=== PATIENT | male | born 1985 | race Two or more races ===

== ENCOUNTER 2017-08-27 17:52 | Inpatient (IN) | payer OTHER ==
[2017-08-27] MEDS ORDERED: HYDROmorphONE/DILAUDID 1 MG/ML INJ IVP ONE ×3 (18:07→20:41)
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
[2017-08-27] MEDS ORDERED: KETAMINE 100 MG/10 ML SYR ONE (18:53)
[2017-08-27] MEDS ORDERED: PROPOFOL 200 MG/20 ML VIAL ONE (18:53)
[2017-08-27] MEDS ORDERED: HYDROmorphONE/DILAUDID 1 MG/ML INJ ONE (18:57)
[2017-08-27] MEDS ORDERED: PROPOFOL 200 MG/20 ML VIAL IVP ONE ×3 (18:57→20:21)
[2017-08-27] MEDS ORDERED: KETAMINE 100 MG/10 ML SYR IVP ONE ×2 (18:58→20:20)
[2017-08-27] MEDS ORDERED: HYDROCOD/APAP 5/325 PREPACK#6 BTL TAKEHOME ONE (20:00)
[2017-08-27] MEDS ORDERED: ATENOLOL 50 MG TAB PO ONE (20:19)
[2017-08-27] MEDS ORDERED: METHIMAZOLE 5 MG TAB PO ONE (20:19)
[2017-08-27] MEDS ORDERED: KETAMINE 500 MG/10 ML VIAL IVP ONE (20:21)
[2017-08-27] MEDS ORDERED: NS 1,000 ML IV ONE (20:29)
[2017-08-27 20:42] LABS: % IMMATURE GRANULYOCYTES 0.3 % (0.0-1.1); ABSOLUTE IMMATURE GRANULOCYTES 0.03 10^3/uL (0.00-0.10); ADD DIFF? NO; ADD MORPH? NO; ADD SCAN? NO; ATYPICAL LYMPHOCYTE FLAG 0 (0-99); FRAGMENT RBC FLAG 0 (0-99); HEMATOCRIT 42.1 % (40.0-51.0); HEMOGLOBIN 14.4 g/dL (13.7-17.5); LEFT SHIFT FLG 0 (0-99); LIPEMIA HEMOLYSIS FLAG 90 (0-99); MEAN CELL HEMOGLOBIN 27.6 pg (27.9-34.1); MEAN CELL HEMOGLOBIN CONCENTR. 34.2 g/dL (32.4-36.7); MEAN CELL VOLUME 80.7 fL (81.5-99.8); MEAN PLATELET VOLUME 10.2 fL (8.7-11.7); PLATELET CLUMPS FLAG 20 (0-99); PLATELET COUNT 170 10^3/uL (150-400); RED BLOOD CELL COUNT 5.22 10^6/uL (4.40-6.38); RED CELL DISTRIBUTION WIDTH 13.7 % (11.5-15.2)
--- NOTE | 2017-08-27 20:52 | CPEKG ---
Heart Rate: 110 RR Interval: 545 P-R Interval: 140 QRSD Interval: 100 QT Interval: 324 QTC Interval: 439 P [place]: -5 QRS [place]: 53 T Wave [place]: 19 EKG Severity - ABNORMAL ECG - EKG Impression: SINUS TACHYCARDIA EKG Impression: PROBABLE LEFT VENTRICULAR HYPERTROPHY Electronically Signed By: Alexander Ahuja 27-Aug-2017 21:07:21
[2017-08-27 20:54] LABS: APTT 26.3 SEC (23.0-38.0); INR 1.26 (0.83-1.16)
[2017-08-27] MEDS ORDERED: ESMOLOL/NACL 250 ML IV SCH (21:00)
[2017-08-27 21:03] LABS: ALANINE AMINOTRANSFERASE 32 IU/L (21-72); ALBUMIN 3.9 g/dL (3.5-5.0); ALKALINE PHOSPHATASE 234 IU/L (38-126); ANION GAP 15 mEq/L (8-16); ASPARTATE AMINOTRANSFERASE 22 IU/L (17-59); BILIRUBIN,TOTAL 0.4 mg/dL (0.1-1.4); BILIRUBIN-CONJUGATED 0.2 mg/dL (0.0-0.5); BILIRUBIN-UNCONJUGATED 0.2 mg/dL (0.0-1.1); CALCIUM 9.1 mg/dL (8.5-10.4); CARBON DIOXIDE 18 mEq/l (22-31); CHLORIDE 108 mEq/L (97-110); CREATININE 0.5 mg/dL (0.7-1.3); GLOMERULAR FILTRATION RATE > 60; GLUCOSE 108 mg/dL (70-100); POTASSIUM 3.9 mEq/L (3.5-5.2); SODIUM 141 mEq/L (134-144)
[2017-08-27] MEDS ORDERED: ESMOLOL/NACL 250 ML IV ONE (21:30)
[2017-08-27] MEDS ORDERED: ONDANSETRON 4 MG/2 ML VIAL IVP PRN (21:35)
[2017-08-27] MEDS ORDERED: PROMETHAZINE HCL 25 MG/ML INJ IVP PRN (21:35)
[2017-08-27] MEDS ORDERED: ONDANSETRON DISINTEGRATING 4 MG TAB PO PRN (21:35)
[2017-08-27] MEDS: HYDROmorphONE/DILAUDID 1 MG/ML INJ IVP PRN (21:55)
[2017-08-27] MEDS: NS 1,000 ML IV SCH (21:58)
[2017-08-27] MEDS ORDERED: PROPRANOLOL HCL 20 MG TAB PO SCH (22:00)
[2017-08-27] MEDS: oxyCODONE IR 5 MG TAB PO PRN (22:08)
[2017-08-27] MEDS: ACETAMINOPHEN 500 MG TAB PO SCH (22:10)
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
[2017-08-27] MEDS: PROPRANOLOL HCL 20 MG TAB PO SCH (23:25)
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
[2017-08-28] MEDS: PROPRANOLOL HCL 20 MG TAB PO SCH ×4 (02:09→22:23)
[2017-08-28] MEDS: oxyCODONE IR 5 MG TAB PO PRN ×4 (02:15→17:35)
[2017-08-28] MEDS: HYDROmorphONE/DILAUDID 1 MG/ML INJ IVP PRN ×2 (04:43→12:16)
[2017-08-28] MEDS: NS 1,000 ML IV SCH (06:41)
[2017-08-28] MEDS: ACETAMINOPHEN 500 MG TAB PO SCH ×3 (06:46→22:25)
[2017-08-28 07:12] LABS: % IMMATURE GRANULYOCYTES 0.2 % (0.0-1.1); ABSOLUTE IMMATURE GRANULOCYTES 0.02 10^3/uL (0.00-0.10); ADD DIFF? NO; ADD MORPH? NO; ADD SCAN? NO; ATYPICAL LYMPHOCYTE FLAG 0 (0-99); FRAGMENT RBC FLAG 0 (0-99); HEMATOCRIT 37.6 % (40.0-51.0); HEMOGLOBIN 12.7 g/dL (13.7-17.5); LEFT SHIFT FLG 0 (0-99); LIPEMIA HEMOLYSIS FLAG 90 (0-99); MEAN CELL HEMOGLOBIN 27.6 pg (27.9-34.1); MEAN CELL HEMOGLOBIN CONCENTR. 33.8 g/dL (32.4-36.7); MEAN CELL VOLUME 81.7 fL (81.5-99.8); MEAN PLATELET VOLUME 10.4 fL (8.7-11.7); PLATELET CLUMPS FLAG 0 (0-99); PLATELET COUNT 166 10^3/uL (150-400); RED CELL DISTRIBUTION WIDTH 14.1 % (11.5-15.2)
[2017-08-28 07:18] LABS: ANION GAP 9 mEq/L (8-16); CARBON DIOXIDE 23 mEq/l (22-31); CHLORIDE 106 mEq/L (97-110); CREATININE 0.5 mg/dL (0.7-1.3); GLOMERULAR FILTRATION RATE > 60; GLUCOSE 97 mg/dL (70-100); POTASSIUM 4.3 mEq/L (3.5-5.2); SODIUM 138 mEq/L (134-144)
[2017-08-28] MEDS ORDERED: METHIMAZOLE 5 MG TAB PO SCH ×2 (08:00→09:03)
--- NOTE | 2017-08-28 09:07 | TRAUMAPN ---
Assessment/Plan: 08/28/2017 PAD#1 Assessment: Tertiary exam complete and without new findings. It is unclear who was consulted from orthopedics yesterday. I will research that question. Agree with endocrine that Hyperthyroidism should be controlled prior to surgery as there is not a surgical emergency at this point Plan: Obtain ortho consult if it has not been done. Subjective: I have no new pains or complaints Objective: Vital Signs Temp Pulse Resp BP Pulse Ox 36.9 C 88 19 119/69 98 08/28/17 07:29 08/28/17 08:26 08/28/17 07:29 08/28/17 08:26 08/28/17 07:29 Laboratory Results 08/28/17 06:40 08/28/17 06:40 08/27/17 08/28/17 08/29/17 05:59 05:59 05:59 Intake Total 2750 885 Output Total 200 Balance 2550 885 PT 16.0 SEC (12.0-15.0) H 08/27/17 20:35 INR 1.26 (0.83-1.16) H 08/27/17 20:35 Physical Exam - Physical Exam General Appearance: WD/WN, alert, no apparent distress EENT: normal ENT inspection Neck: non-tender, full range of motion, supple, normal inspection Respiratory: chest non-tender, lungs clear, normal breath sounds Cardiac/Chest: regular rate, rhythm Abdomen: normal bowel sounds, non-tender, soft, other (pelvis stable to AP and lateral compression) Male Genitalia: deferred Rectal: deferred Back: Normal inspection Skin: normal color, warm/dry, diaphoresis (slight) Extremities: other (left arm in splint, right leg in walker boot) Neuro/Psych: no motor/sensory deficits, alert, normal mood/affect, oriented x 3 Time Spent w/Patient (minutes): 25
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
--- NOTE | 2017-08-28 12:14 | SOAPPROG ---
SOAP Progress Note Assessment/Plan: Assessment: Left both bone fx R 4-5th MT fractures Plan: Plan OR tomorrow for orif L forearm CT of right foot see dicated for full consult 08/28/17 12:14 Objective: Vital Signs Temp Pulse Resp BP Pulse Ox 36.9 C 88 19 119/69 98 08/28/17 07:29 08/28/17 08:26 08/28/17 07:29 08/28/17 08:26 08/28/17 07:29 Laboratory Results 08/28/17 06:40 08/28/17 06:40 08/27/17 08/28/17 08/29/17 05:59 05:59 05:59 Intake Total 2750 885 Output Total 200 Balance 2550 885 PT 16.0 SEC (12.0-15.0) H 08/27/17 20:35 INR 1.26 (0.83-1.16) H 08/27/17 20:35 ICD10 Worksheet Patient Problems: Problems Problem Status Onset Foot fracture, right Acute Fracture of forearm, left, closed Acute
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
[2017-08-28] MEDS: METHIMAZOLE 5 MG TAB PO SCH (17:35)
[2017-08-28] MEDS: HYDROCORTISONE 100 MG/2 ML VIAL IVP SCH (17:35)
[2017-08-28] MEDS: CHOLESTYRAMINE/SUCROSE 4 GM PKT PO SCH (18:38)
[2017-08-28] MEDS: POTASSIUM IODIDE 30 ML BTL PO SCH (23:00)
[2017-08-29] MEDS: METHIMAZOLE 5 MG TAB PO SCH ×5 (00:13→23:38)
[2017-08-29] MEDS: CHOLESTYRAMINE/SUCROSE 4 GM PKT PO SCH ×4 (01:28→18:35)
[2017-08-29] MEDS: HYDROCORTISONE 100 MG/2 ML VIAL IVP SCH ×3 (01:28→18:33)
[2017-08-29] MEDS: POTASSIUM IODIDE 30 ML BTL PO SCH ×4 (04:45→19:52)
[2017-08-29] MEDS: ACETAMINOPHEN 500 MG TAB PO SCH ×3 (05:17→22:04)
[2017-08-29 05:56] LABS: ANION GAP 14 mEq/L (8-16); CALCIUM 9.5 mg/dL (8.5-10.4); CARBON DIOXIDE 20 mEq/l (22-31); CHLORIDE 108 mEq/L (97-110); CREATININE 0.5 mg/dL (0.7-1.3); GLOMERULAR FILTRATION RATE > 60; GLUCOSE 146 mg/dL (70-100); POTASSIUM 4.1 mEq/L (3.5-5.2); SODIUM 142 mEq/L (134-144)
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
--- NOTE | 2017-08-29 08:36 | SOAPPROG ---
SOAP Progress Note Assessment/Plan: Assessment: 1. Graves disease with mild ophthalmopathy, bilateral, uncontrolled. -Reviewed thyroid US report which is consistent with Graves disease. TSI antibody still pending. T3 elevated at 10.9. -Started on thyroid storm protocol to lower levels as much as possible prior to surgery. Continue methimazole 20 mg PO q 6 hrs, hydrocortisone 100 mg IV q 8 to decrease peripheral conversion, propranolol to decrease peripheral conversion and control tachycardia, cholestyramine 4g PO q6 to decrease enterohepatic circulation, SSKI drops. Will continue these meds at these doses until 1-2 days post surgery and then will stop iodine drops and taper down other meds. Discharge dose of methimazole will likely be 30 mg PO qday. Repeat T4 and T3 level tomorrow. TSH level will remain suppressed for a few months so no need to check that. Plan: 08/29/17 08:32 Subjective: Pain from fracture is better controlled this morning. He had no questions about medications this morning. Objective: Vital Signs Temp Pulse Resp BP Pulse Ox 36.6 C 83 15 115/70 97 08/29/17 08:00 08/29/17 08:00 08/29/17 08:00 08/29/17 08:00 08/29/17 08:00 Laboratory Results 08/29/17 05:32 08/28/17 08/29/17 08/30/17 05:59 05:59 05:59 Intake Total 900 Output Total 4 Balance 896 PT 16.0 SEC (12.0-15.0) H 08/27/17 20:35 INR 1.26 (0.83-1.16) H 08/27/17 20:35 ICD10 Worksheet Patient Problems: Problems Problem Status Onset Foot fracture, right Acute Fracture of forearm, left, closed Acute
[2017-08-29] MEDS: PROPRANOLOL HCL 20 MG TAB PO SCH ×3 (09:16→23:37)
--- NOTE | 2017-08-29 09:37 | SOAPPROG ---
KAILASH Progress Note Assessment/Plan: Assessment: Left both bone fx R 4-5th MT fractures Plan: Plan OR tomorrow for orif L forearm at around 1:00pm CT of right foot medical maximization of thyroid 08/28/17 12:14 08/29/17 09:35 Subjective: pain left forearm Objective: Vital Signs Temp Pulse Resp BP Pulse Ox 36.6 C 83 15 115/70 97 08/29/17 08:00 08/29/17 08:00 08/29/17 08:00 08/29/17 08:00 08/29/17 08:00 Laboratory Results 08/29/17 05:32 08/28/17 08/29/17 08/30/17 05:59 05:59 05:59 Intake Total 900 Output Total 4 Balance 896 PT 16.0 SEC (12.0-15.0) H 08/27/17 20:35 INR 1.26 (0.83-1.16) H 08/27/17 20:35 splint intact ICD10 Worksheet Patient Problems: Problems Problem Status Onset Foot fracture, right Acute Fracture of forearm, left, closed Acute
[2017-08-29] MEDS: oxyCODONE IR 5 MG TAB PO PRN ×3 (10:25→18:32)
[2017-08-29] MEDS: HYDROmorphONE/DILAUDID 1 MG/ML INJ IVP PRN ×2 (12:02→12:49)
[2017-08-29] MEDS ORDERED: POTASSIUM IODIDE 30 ML BTL PO SCH (13:30)
[2017-08-29] MEDS: KETOROLAC 30 MG/1 ML SDV IVP PRN (13:54)
[2017-08-29] MEDS ORDERED: HYDROmorphone HCL/NS/PF 0.4 MG/2 ML SYR IVP PRN (15:31)
[2017-08-30] MEDS: HYDROCORTISONE 100 MG/2 ML VIAL IVP SCH ×3 (01:07→18:07)
[2017-08-30] MEDS: POTASSIUM IODIDE 30 ML BTL PO SCH ×4 (01:08→19:27)
[2017-08-30] MEDS: CHOLESTYRAMINE/SUCROSE 4 GM PKT PO SCH ×6 (01:35→23:50)
[2017-08-30] MEDS: oxyCODONE IR 5 MG TAB PO PRN ×3 (01:37→23:51)
[2017-08-30] MEDS: KETOROLAC 30 MG/1 ML SDV IVP PRN ×2 (04:47→23:54)
[2017-08-30 05:18] LABS: ANION GAP 14 mEq/L (8-16); CALCIUM 9.3 mg/dL (8.5-10.4); CARBON DIOXIDE 21 mEq/l (22-31); CHLORIDE 108 mEq/L (97-110); CREATININE 0.5 mg/dL (0.7-1.3); GLOMERULAR FILTRATION RATE > 60; GLUCOSE 123 mg/dL (70-100); POTASSIUM 4.2 mEq/L (3.5-5.2); SODIUM 143 mEq/L (134-144)
[2017-08-30] MEDS: ACETAMINOPHEN 500 MG TAB PO SCH ×3 (06:08→21:47)
[2017-08-30] MEDS: METHIMAZOLE 5 MG TAB PO SCH ×4 (06:09→23:50)
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
[2017-08-30] MEDS: PROPRANOLOL HCL 20 MG TAB PO SCH ×3 (10:13→21:47)
[2017-08-30] MEDS ORDERED: LR 1,000 ML IV ONE (12:18)
--- NOTE | 2017-08-30 12:25 | SOAPPROG ---
SOAP Progress Note Assessment/Plan: Assessment: 1. Graves disease with mild ophthalmopathy, bilateral, uncontrolled. -Reviewed thyroid US report which is consistent with Graves disease. TSI antibody still pending. T3 elevated at 10.9. -Started on thyroid storm protocol to lower levels as much as possible prior to surgery. Continue methimazole 20 mg PO q 6 hrs, hydrocortisone 100 mg IV q 8 to decrease peripheral conversion, propranolol to decrease peripheral conversion and control tachycardia, cholestyramine 4g PO q6 to decrease enterohepatic circulation, SSKI drops. Will continue these meds at these doses until 1-2 days post surgery and then will stop iodine drops and taper down other meds. Discharge dose of methimazole will likely be 30 mg PO qday. Repeat T4 and T3 level tomorrow. TSH level will remain suppressed for a few months so no need to check that. Plan: 08/29/17 08:32 Subjective: Patient had been taken down to pre-op area when I stopped by his room. Reviewed T4 and T3 levels from this morning which continue to improve. Objective: Vital Signs Temp Pulse Resp BP Pulse Ox 36.8 C 88 16 91/70 L 97 08/30/17 12:14 08/30/17 12:14 08/30/17 12:14 08/30/17 12:14 08/30/17 12:14 Laboratory Results 08/30/17 04:21 08/29/17 08/30/17 08/31/17 05:59 05:59 05:59 Intake Total 900 700 Output Total 4 Balance 896 700 PT 16.0 SEC (12.0-15.0) H 08/27/17 20:35 INR 1.26 (0.83-1.16) H 08/27/17 20:35 ICD10 Worksheet Patient Problems: Problems Problem Status Onset Foot fracture, right Acute Fracture of forearm, left, closed Acute Hyperthyroidism Acute
[2017-08-30] MEDS ORDERED: ceFAZolin 2 GM/SWFI 2 GM/20 ML SYR IVP ONE (12:43)
--- NOTE | 2017-08-30 12:43 | SOAPPROG ---
SOAP Progress Note Assessment/Plan: Assessment: Left both bone fx R 4-5th MT fractures Plan: Plan OR today for orif L forearm at around 1:00pm CT of right foot shows non displace 2-5 MT neck fractures- treat non op in boot medical maximization of thyroid 08/28/17 12:14 08/29/17 09:35 08/30/17 12:42 Subjective: pain in left arm Objective: Vital Signs Temp Pulse Resp BP Pulse Ox 36.8 C 88 16 91/70 L 97 08/30/17 12:14 08/30/17 12:14 08/30/17 12:14 08/30/17 12:14 08/30/17 12:14 Laboratory Results 08/30/17 04:21 08/29/17 08/30/17 08/31/17 05:59 05:59 05:59 Intake Total 900 700 Output Total 4 Balance 896 700 PT 16.0 SEC (12.0-15.0) H 08/27/17 20:35 INR 1.26 (0.83-1.16) H 08/27/17 20:35 splint intact ICD10 Worksheet Patient Problems: Problems Problem Status Onset Foot fracture, right Acute Fracture of forearm, left, closed Acute Hyperthyroidism Acute
[2017-08-30] MEDS ORDERED: MIDAZOLAM 2 MG/2 ML VIAL IVP ONE (13:13)
--- NOTE | 2017-08-30 13:14 | PDANEPAE ---
ANE Past Medical History - Cardiovascular History Hx Hypertension: No Hx Arrhythmias: Yes Hx Chest Pain: No Hx Coronary Artery / Peripheral Vascular Disease: No Hx CHF / Valvular Disease: No Hx Palpitations: No - Pulmonary History Hx COPD: No Hx Asthma/Reactive Airway Disease: No Hx Recent Upper Respiratory Infection: No Hx Oxygen in Use at Home: No Hx Sleep Apnea: No Sleep Apnea Screening Result - Last Documented: Positive - Endocrine History Hx Diabetes: No Hypothyroid: No Hyperthyroid: No Obesity: no - Chronic Pain History Chronic Pain: No ANE Review of Systems Review of Systems: ANE Patient History - Allergies Allergies/Adverse Reactions: No Known Allergies Allergy (Unverified 08/27/17 18:05) - Home Medications Home Medications: Atenolol [Tenormin 25 mg (*)] 25 mg PO DAILY 08/27/17 [Last Taken 08/26/17] Methimazole [Northyx] 20 mg PO DAILY 08/27/17 [Last Taken 08/24/17] - NPO status NPO Since - Liquids (Date): 08/30/17 NPO Since - Liquids (Time): 10:00 NPO Since - Solids (Date): 08/29/17 NPO Since - Solids (Time): 22:00 - Smoking Hx Smoking Status: Never smoked - Alcohol Use Alcohol Use: Sober ANE Labs/Vital Signs - Labs Result Diagrams: 08/28/17 06:40 08/30/17 04:21 - Vital Signs Blood Pressure: 91/70 Heart Rate: 88 Respiratory Rate: 16 O2 Sat (%): 97 Height: 165.1 cm Weight: 84.6 kg ANE Physical Exam - Airway Neck exam: FROM Mallampati Score: Class 2 Mouth exam: normal dental/mouth exam - Pulmonary Pulmonary: no respiratory distress - Cardiovascular Cardiovascular: regular rate and rhythym - ASA Status ASA Status: II ANE Anesthesia Plan Anesthesia Plan: GA w LMA
[2017-08-30] MEDS ORDERED: fentaNYL 250 MCG/5 ML INJ ONE (13:28)
[2017-08-30] MEDS ORDERED: PROPOFOL/EMULSION 500 MG/50 ML BOTTLE IV ONE (13:29)
[2017-08-30] MEDS ORDERED: METOPROLOL TARTRATE 5 MG/5 ML INJ ONE (13:56)
[2017-08-30] MEDS ORDERED: REMIFENTANIL HCL 1 MG VIAL ONE (13:59)
[2017-08-30] MEDS ORDERED: BUPIVACAINE 0.5% 30 ML SDV ONE (14:15)
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
[2017-08-30] MEDS ORDERED: HYDROmorphONE/DILAUDID 2 MG/ML INJ ONE (15:10)
--- NOTE | 2017-08-30 15:33 | POSTOPPROG ---
Post Op Note Date of Operation: 08/30/17 Surgeon: Alireza Gurrola [employer] Operator: Mabel Anesthesia: GET(General Endotracheal) Pre-op Diagnosis: L bbfa fx Post-op Diagnosis: same Indication: above Procedure: orif L bbfa fx Inf/Abcess present in the surg proc area at time of surgery?: No EBL: 50-100
[2017-08-30] MEDS ORDERED: PROMETHAZINE HCL 25 MG/ML INJ IVP PRN (15:44)
[2017-08-30] MEDS ORDERED: NALOXONE HCL 0.4 MG/ML INJ IVP PRN (15:44)
[2017-08-30] MEDS ORDERED: OXYCODONE/APAP 5/325 TAB PO PRN (15:44)
[2017-08-30] MEDS ORDERED: KETOROLAC 30 MG/1 ML SDV IVP ONE (15:45)
--- NOTE | 2017-08-30 15:46 | POSTANESTH ---
Post Anesthetic Evaluation Cardiovascular Status: Normal, Stable Respiratory Status: Normal, Stable Level of Consciousness/Mental Status: Can Participate in Eval Pain Control: Adequate, Prn Tx Ordered Nausea/Vomiting Control: Adequate, Prn Tx Ordered Complications Possibly Related to Anesthesia: None Noted
[2017-08-30] MEDS ORDERED: HYDROmorphONE/DILAUDID 1 MG/ML INJ ONE (15:48)
[2017-08-30] MEDS ORDERED: fentaNYL 100 MCG/2 ML INJ ONE ×2 (15:49→16:10)
[2017-08-30] MEDS: fentaNYL 100 MCG/2 ML INJ IVP PRN ×3 (15:52→16:26)
[2017-08-30] MEDS: HYDROmorphONE/DILAUDID 1 MG/ML INJ IVP PRN ×2 (15:57→16:12)
[2017-08-30] MEDS ORDERED: KETOROLAC 30 MG/1 ML SDV ONE (16:10)
[2017-08-31] MEDS: HYDROCORTISONE 100 MG/2 ML VIAL IVP SCH ×2 (00:49→09:10)
[2017-08-31] MEDS: POTASSIUM IODIDE 30 ML BTL PO SCH ×3 (00:49→11:59)
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
[2017-08-31] MEDS: ACETAMINOPHEN 500 MG TAB PO SCH ×4 (05:59→22:17)
[2017-08-31] MEDS: CHOLESTYRAMINE/SUCROSE 4 GM PKT PO SCH ×3 (06:00→11:58)
[2017-08-31] MEDS: METHIMAZOLE 5 MG TAB PO SCH ×4 (06:00→17:21)
[2017-08-31] MEDS: oxyCODONE IR 5 MG TAB PO PRN ×5 (06:11→20:28)
[2017-08-31 06:18] LABS: HEMATOCRIT 37.1 % (40.0-51.0); HEMOGLOBIN 12.6 g/dL (13.7-17.5); MEAN CELL HEMOGLOBIN 27.5 pg (27.9-34.1); RED BLOOD CELL COUNT 4.58 10^6/uL (4.40-6.38)
[2017-08-31] MEDS: PROPRANOLOL HCL 20 MG TAB PO SCH ×3 (09:08→22:17)
[2017-08-31] MEDS: KETOROLAC 30 MG/1 ML SDV IVP PRN ×2 (09:16→20:28)
--- NOTE | 2017-08-31 12:00 | SOAPPROG ---
[facility] Progress Note Assessment/Plan: Assessment: Left both bone fx R 2-5th MT fractures Plan: s/p orif bbfa fx 08/30 doing well nwb LUE may move fingers heel wt bearing in boot on right lower extremity, may be out of boot when not ambulating follow up with me in 1 week he has my card to make appt 08/28/17 12:14 08/29/17 09:35 08/30/17 12:42 08/31/17 11:58 Subjective: pain in forearm improving Objective: Vital Signs Temp Pulse Resp BP Pulse Ox 37.1 C 91 20 133/76 H 90 L 08/31/17 11:39 08/31/17 11:39 08/31/17 11:39 08/31/17 11:39 08/31/17 11:39 Laboratory Results 08/31/17 04:22 08/30/17 04:21 08/30/17 08/31/17 09/01/17 05:59 05:59 05:59 Intake Total 700 2200 350 Output Total 21 Balance 700 2179 350 PT 16.0 SEC (12.0-15.0) H 08/27/17 20:35 INR 1.26 (0.83-1.16) H 08/27/17 20:35 LUE finger movement intact silt ICD10 Worksheet Patient Problems: Problems Problem Status Onset Foot fracture, right Acute Fracture of forearm, left, closed Acute Hyperthyroidism Acute
--- NOTE | 2017-08-31 12:20 | SOAPPROG ---
[facility] Progress Note Assessment/Plan: Assessment: 1. Graves disease with mild ophthalmopathy, bilateral, uncontrolled. -T3 level is now in the normal range, T4 still elevated. Will stop iodine drops , hydrocortisone and cholestyramine. Will decrease methimazole to 30 mg PO qday and continue beta lacho in some form. Plan: 08/29/17 08:32 08/31/17 12:18 Subjective: Reviewed labs from this morning. Objective: Vital Signs Temp Pulse Resp BP Pulse Ox 37.1 C 91 20 133/76 H 90 L 08/31/17 11:39 08/31/17 11:39 08/31/17 11:39 08/31/17 11:39 08/31/17 11:39 Laboratory Results 08/31/17 04:22 08/30/17 04:21 08/30/17 08/31/17 09/01/17 05:59 05:59 05:59 Intake Total 700 2200 350 Output Total 21 Balance 700 2179 350 PT 16.0 SEC (12.0-15.0) H 08/27/17 20:35 INR 1.26 (0.83-1.16) H 08/27/17 20:35 ICD10 Worksheet Patient Problems: Problems Problem Status Onset Foot fracture, right Acute Fracture of forearm, left, closed Acute Hyperthyroidism Acute
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
[2017-08-31] MEDS: ENOXAPARIN 40 MG/0.4 ML SYR SC SCH (17:21)
[2017-09-01] MEDS: METHIMAZOLE 5 MG TAB PO SCH ×3 (00:07→12:04)
[2017-09-01] MEDS: oxyCODONE IR 5 MG TAB PO PRN ×5 (00:07→15:12)
[2017-09-01] MEDS: ACETAMINOPHEN 500 MG TAB PO SCH ×2 (06:06→13:31)
[2017-09-01 08:23] VITALS: BP 118/79; PULSE 65; RESP 16; TEMP 98.6; O2SAT 93
[2017-09-01] MEDS: PROPRANOLOL HCL 20 MG TAB PO SCH ×2 (08:59→15:12)
[2017-09-01] MEDS: ENOXAPARIN 40 MG/0.4 ML SYR SC SCH (08:59)
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
== END 2017-09-01 17:31 | disposition home or self-care (01) | DRG 512 ==
LOC: EDUNIT# → F2N 21:46 → OBSVTOIN 08-28 13:10 → F3N 08-29 10:17
PROVIDERS: ADMIT Internal Medicine; ATTEND Student in an Organized Health Care Education/Training Program
PROC: 0PSLXZZ Reposition Left Ulna, External Approach (ICD-10-PCS; 2017-08-28)
PROC: 0PSJXZZ Reposition Left Radius, External Approach (ICD-10-PCS; 2017-08-28)
PROC: 0PSJ04Z Reposition Left Radius with Internal Fixation Device, Open Approach (ICD-10-PCS; principal; 2017-08-30 13:00)
PROC: 0QSNXZZ Reposition Right Metatarsal, External Approach (ICD-10-PCS; principal; 2017-08-30 13:00)
PROC: 0PSL04Z Reposition Left Ulna with Internal Fixation Device, Open Approach (ICD-10-PCS; principal; 2017-08-30 13:00)
DX: S52.602A Unspecified fracture of lower end of left ulna, initial encounter for closed fracture (principal); S52.502A Unspecified fracture of the lower end of left radius, initial encounter for closed fracture; E05.00 Thyrotoxicosis with diffuse goiter without thyrotoxic crisis or storm; S92.341A Displaced fracture of fourth metatarsal bone, right foot, initial encounter for closed fracture; S92.354A Nondisplaced fracture of fifth metatarsal bone, right foot, initial encounter for closed fracture; G89.11 Acute pain due to trauma; L80 Vitiligo; V53.5XXA Driver of pick-up truck or van injured in collision with car, pick-up truck or van in traffic accident, initial encounter; Y99.9 Unspecified external cause status
CPT/HCPCS: 84445-90; 84481-90; 96365; 97116-GP; 97161-GP; 97165-GO; 97535-GO; C1713; G0378; J0690; J1170; J1650; J1885; J2250; J2550; J2704; J3010

== ENCOUNTER → 2017-10-12 | Outpatient (CLI) | payer OTHER | LOC: FIMAGING 12:15 | DX: S52.502D Unspecified fracture of the lower end of left radius, subsequent encounter for closed fracture with routine healing (principal); S52.602D Unspecified fracture of lower end of left ulna, subsequent encounter for closed fracture with routine healing; M25.422 Effusion, left elbow ==